=== PATIENT | female | born 1995 | race African-American/Black ===

== ENCOUNTER 2017-03-06 18:18 | Emergency (ER) | payer MEDICAID | END 2017-03-06 21:27 | disposition home or self-care (01) | LOC: D.ER 18:18 | DX: S40.011A Contusion of right shoulder, initial encounter (principal); S00.03XA Contusion of scalp, initial encounter; Y04.2XXA Assault by strike against or bumped into by another person, initial encounter; Y93.89 Activity, other specified; Y92.89 Other specified places as the place of occurrence of the external cause; S60.511A Abrasion of right hand, initial encounter; S06.0X0A Concussion without loss of consciousness, initial encounter; B37.3 Candidiasis of vulva and vagina; F17.200 Nicotine dependence, unspecified, uncomplicated ==

== ENCOUNTER 2017-08-12 18:00 | Emergency (ER) | payer MEDICAID, BC ==
[2017-08-12 18:47] LABS: APPEARANCE CLEAR (CLEAR); COLOR YELLOW (YELLOW); NITRITE NEGATIVE (NEGATIVE); PROTEIN NEGATIVE (NEGATIVE); SPECIFIC GRAVITY 1.015 (1.005-1.020)
[2017-08-12 18:48] LABS: BILIRUBIN NEGATIVE (NEGATIVE); GLUCOSE NEGATIVE (NEGATIVE); KETONE NEGATIVE (NEGATIVE); UROBILINOGEN NORMAL (NORMAL)
[2017-08-12 18:49] LABS: EPITHELIAL CELLS 0-5 /hpf (0-5); RED CELLS - URINE OCC /hpf (0-5); WHITE CELLS - URINE 0-5 /hpf (0-5)
[2017-08-12 18:50] LABS: BACTERIA MODERATE /hpf (NONE SEEN); MUCUS <1+ /lpf (NONE SEEN)
[2017-08-15 23:13] LABS: CHLAMYDIA TRACHOMATIS, NAA Negative (Negative)
== END 2017-08-13 18:03 | disposition left against medical advice (07) ==
LOC: D.ER 18:00
PROVIDERS: Emergency Medicine
DX: Z00.00 Encounter for general adult medical examination without abnormal findings (principal)

== ENCOUNTER 2018-01-10 21:45 | Emergency (ER) | payer MEDICAID, BC ==
[~2018-01-10] VITALS: Ht 157.5 cm; Wt 104.5 kg
[2018-01-10 21:51] VITALS: BP 141/88; Ht 157.5 cm; Wt 104.5 kg
[2018-01-10 23:00] LABS: BASOPHILS 0.2 % (0-2); EOSINOPHILS 6.5 % (0-7); HEMATOCRIT 37.4 % (36.0-48.0); IMMATURE GRANULOCYTES 0.1 % (0-5); LYMPHOCYTES 23.2 % (15-50); MCH 25.4 pg (26.0-34.0); MCHC 32.1 g/dL (31.0-37.0); MCV 79.1 fL (80.0-100.0); MEAN PLATELET VOLUME 13.2 fL (7.4-10.4); MONOCYTES 7.5 % (2-11); NEUTROPHILS 62.5 % (40-80); PLATELET COUNT 174 10x3/uL (130-400); RBC 4.73 10x6/uL (4.00-5.40); RDW 14.7 % (11.5-14.5); WBC 8.1 10x3/uL (4.8-10.8)
[2018-01-10 23:16] LABS: ALBUMIN 3.2 g/dL (3.4-5.0); ALKALINE PHOSPHATASE 78 U/L (46-116); ALT (SGPT) 15 U/L (10-68); BILIRUBIN - TOTAL 0.06 mg/dL (0.2-1.3); CALC OSMOLALITY 273 mosm/kg (275-300); CALCIUM 8.5 mg/dL (8.5-10.1); CHLORIDE - SERUM 105 mmol/L (98-107); CREATININE - SERUM 0.7 mg/dL (0.6-1.3); GLUCOSE 84 mg/dL (74-106); POTASSIUM - SERUM 4.3 mmol/L (3.5-5.1); PROTEIN - SERUM 7.2 g/dL (6.4-8.2); SODIUM 138 mmol/L (136-145); UREA NITROGEN 11 mg/dL (7-18); eGFR NON AFRICAN AMERICAN > 90 mL/min (90-120)
[2018-01-10 23:21] LABS: HCG URINE NEGATIVE (NEGATIVE)
== END 2018-01-11 00:05 | disposition left against medical advice (07) ==
LOC: D.ER 21:45
PROVIDERS: Family Medicine
DX: M54.2 Cervicalgia (principal); R51 Headache; Y04.2XXA Assault by strike against or bumped into by another person, initial encounter; Y93.89 Activity, other specified; Y92.019 Unspecified place in single-family (private) house as the place of occurrence of the external cause